=== PATIENT | male | born 1995 | race Caucasian/White ===

== ENCOUNTER 2022-07-18 03:04 | Emergency (ER) | payer SELFPAY ==
[~2022-07-18] VITALS: Ht 175.3 cm; Wt 72.6 kg
--- NOTE | 2022-07-18 03:20 | NUR ---
Pt is noted alert, responsive as he came in C/O Anxiety after woke up with heart Racing. Pt care continue with MD at bedside as COVID19 test sent to LAB.
[2022-07-18 03:46] LABS: BASOPHILS # (AUTO) 0.3 K/uL (0.0-0.2); BASOPHILS % (AUTO) 3.5 % (0.0-2.0); EOSINOPHILS % (AUTO) 2.5 % (0.0-6.0); HEMATOCRIT 42 % (39-51); HEMOGLOBIN 13.7 g/dL (13.5-17.5); LYMPHOCYTES % (AUTO) 11.6 % (20.0-44.0); MEAN CORPUSCULAR HGB CONC 33 g/dl (31.0-36.0); MEAN CORPUSCULAR VOLUME 88 fL (80-96); MONOCYTES # (AUTO) 0.1 K/uL (0.1-1.30); MONOCYTES % (AUTO) 0.7 % (2.0-12.0); NEUTROPHILS # (AUTO) 7.2 K/uL (1.8-8.9); NEUTROPHILS % (AUTO) 81.7 % (43.0-81.0); PLATELET COUNT (AUTO) 302 K/uL (150-450); RED BLOOD CELL COUNT(AUTO) 4.73 MIL/uL (4.5-6.0); WHITE BLOOD COUNT (AUTO) 8.9 K/uL (4.3-11.0)
[2022-07-18 04:13] LABS: CALCIUM, SERUM 8.7 mg/dL (8.5-10.1); CREATININE 1.1 mg/dL (0.6-1.3); POTASSIUM 3.5 mmol/L (3.5-5.1)
--- NOTE | 2022-07-18 04:53 | NUR ---
Pt is noted stable as he is been discharge to Home with all discharge instruction given .
[2022-07-18 04:54] VITALS: BP 109/63
== END 2022-07-18 04:50 | disposition home or self-care (01) ==
LOC: ER 03:06
DX: F41.9 Anxiety disorder, unspecified (principal); B34.9 Viral infection, unspecified; Z20.822 Contact with and (suspected) exposure to COVID-19
CPT/HCPCS: 99284; 87426; 93005; 85025; 80048; 36415; C9803